=== PATIENT | female | born 1950 | race Caucasian/White ===

== ENCOUNTER 2023-11-18 09:15 | Emergency (ER) | payer BC, MEDICARE ==
[2023-11-18] MEDS: Bupivacaine 0.5% 10 ML SDV INJECT ONE (11:03)
== END 2023-11-18 12:22 | disposition home or self-care (01) ==
LOC: JD.ED 09:15
DX: S63.283A Dislocation of proximal interphalangeal joint of left middle finger, initial encounter (principal); S80.211A Abrasion, right knee, initial encounter; I10 Essential (primary) hypertension; Z91.018 Allergy to other foods; W19.XXXA Unspecified fall, initial encounter
CPT/HCPCS: 28660; 73130; 73140; 99283; J0665